=== PATIENT | female | born 1990 | race Caucasian/White ===

== ENCOUNTER 2020-12-27 18:50 | Emergency (ER) | payer SELFPAY ==
[~2020-12-27] VITALS: Ht 157.5 cm; Wt 58.7 kg
[2020-12-27] MEDS ORDERED: THIAMINE 100MG TABLET PO ONE (19:30)
[2020-12-27] MEDS ORDERED: LORazepam 1MG TABLET PO ONE (19:30)
--- NOTE | 2020-12-27 19:42 | NUR ---
PT HERE BECAUSE SHE WAS DIAGNOSED WITH LYME DISEASE OVER A YEAR AGO, PT STATES THAT PAIN WAS TOO MUCH AND SHE STARTED DRINKING TO TAKE THE PAIN AWAY. PT HERE BECAUSE SHE WANTS TO BE ADMITTED TO DETOX. WHEN SPEAKING TO PT ABOUT OUTPATIENT [facility], PT STARTED CRYING AND STATED "IM NOT CRAZY". PT TOLD TO WEAR GOWN, AND AT BEDSIDE. SAFETY MEASURES IN PLACE
[2020-12-27] MEDS ORDERED: LORazepam 1MG TABLET ONE (19:54)
[2020-12-27] MEDS ORDERED: THIAMINE 100MG TABLET ONE (19:54)
--- NOTE | 2020-12-27 20:17 | NUR ---
patient upset that she is not going to be admitted to hospital. explained the process. patient verbalized understanding. discharged with instruction.
[2020-12-27 20:20] VITALS: BP 131/95
== END 2020-12-27 20:23 | disposition home or self-care (01) ==
LOC: ED 20:17
DX: F10.229 Alcohol dependence with intoxication, unspecified (principal); Y90.0 Blood alcohol level of less than 20 mg/100 ml
CPT/HCPCS: 99283